=== PATIENT | female | born 1955 | race Caucasian/White ===

== ENCOUNTER 2024-11-05 15:34 | Emergency (ER) | payer MEDICARE, SELFPAY ==
[2024-11-05 15:34] VITALS: BP 175/92; PULSE 66; RESP 16; TEMP 35.3; O2SAT 93; BMI 31.5
--- NOTE | 2024-11-05 15:37 | RAD_ITS ---
PROCEDURE: SHOULDER MIN 2 VIEWS 11/05/2024 REASON FOR EXAM: FALL Initial encounter TECHNIQUE: SHOULDER MIN 2 VIEWS COMPARISON: None. FINDINGS: Bones: Humeral head and neck fracture, possibly impaction fracture of the right humeral neck into the humeral head. Joints: No dislocation. Soft tissues: No foreign body in the soft tissues. Other: RAD/Shoulder min 2 Views IMPRESSION: Right humeral neck impaction fracture into the right humeral head. Reading Location: [facility]
--- NOTE | 2024-11-05 16:30 | EX.ED.UPPERE ---
HPI History of Present Illness Chief Complaint: Upper Extremity Injury Detail of Chief Complaint: Injury right shoulder due to mechanical fall Informant: patient Occured/Mechanism Mechanism/Context: Yes injury, Yes blunt trauma and Yes fall Onset/Context/Timing Onset: Hours Context: Sudden Onset Timing: Continuous Quality of Pain: Dull, Aching and Throbbing Location: Proximal right humerus/shoulder region Current Severity: Moderate Maximum Severity: Severe Worsened by: Any movement Relieved by: Nothing Associated Symptoms Associated Symptoms: Positive for Loss of Funtion; Negative for Parasthesia or Weakness Narrative Narrative: Patient is a 69-year-old [id number] woman who presents after mechanical fall. She landed on her right shoulder. She is right-hand dominant. She denies paresthesia, anesthesia or motor weakness. She is not on an antithrombotic or anticoagulant. She denies hitting her head. Denies neck pain. She denies chest pain or shortness of breath. She denies abdominal pain. She states she has an abrasion on her left knee. She does not believe she injured it since the able to move and has no pain. Prior similar symptoms: No Recent Illness/Hospitalization: No PFSH PFS Home Medications ?Medication ?Instructions ?Recorded ?Last Taken ?Type paroxetine HCl 20 mg tablet 40 mg PO DAILY 07/27/13 10/08/16 History trazodone 50 mg tablet 50 mg PO QHS 07/27/13 10/08/16 History atorvastatin 40 mg tablet 40 mg PO QHS 10/09/16 10/08/16 History omeprazole 20 mg capsule,delayed 20 mg PO DAILY 10/09/16 10/09/16 History release prednisone 10 mg tablet 10 mg PO DAILY ##48 10/09/16 Unknown Rx Allergy/AdvReac Type Severity Reaction Status Date / Time codeine Allergy Rash Verified 11/05/24 15:36 morphine Allergy Rash Verified 11/05/24 15:36 Penicillins Allergy Rash Verified 11/05/24 15:36 Sulfa (Sulfonamide Allergy Rash Verified 11/05/24 15:36 Antibiotics) Social History (Updated 11/05/24 @ 16:[address] Jim Nguyễn MD) household members: none Smoking Status: Current every day smoker ROS ROS ED Constitutional Constitutional ED: Denies chills, fever(s) or subjective Eyes Eyes: Denies blurry vision or change in vision Cardiovascular Cardiovascular: Denies chest pain or palpitations Respiratory/Chest Respiratory/Chest: Denies dyspnea or dyspnea on exertion Gastrointestinal Gastrointestinal: Denies abdominal pain, nausea or vomiting Integumentary Reports Abrasions; Denies abscess or rash Neurologic Neurologic: Denies headache(s), paresthesias or weakness EXAM Physical Exam Const Vital Signs: 11/05/24 15:34 Temperature 95.6 F L Temperature Source Temporal Pulse Rate 66 Respiratory Rate 16 Blood Pressure 175/92 H Blood Pressure Mean 119 Pulse Ox 93 Oxygen Delivery Method Room Air Positive well nourished and well developed Constitutional Narrative: BMI is 31.5 General Appearance ED: well developed; Negative for cyanotic, diaphoretic or NAD HEENT Reports moist mucous membranes normocephalic and atraumatic Eyes PERRL and EOMs intact bilaterally Chest Wall palpation of chest normal Resp normal respiratory effort Cardio regular rate and regular rhythm GI non-tender and non-distended Extremity normal to inspection; Negative for full ROM Extremity Narrative: Axillary, median, radial and ulnar nerve function intact. Neuro oriented x3, CN's II-XII intact bilaterally and moves all extremities Sensorium / Orientation: alert Psych mental status grossly normal Skin General Skin Exam: Negative for petechiae Lesions: no lesions Rashes: no rashes Trauma: abrasion MDM MDM MDM Narrative Medical decision making narrative: X-ray of the shoulder was obtained. This was obtained to evaluate for fracture versus fracture dislocation versus contusion. Patient has significant allergy to codeine and morphine. She has never had Dilaudid. She asked if she could have ibuprofen. This was ordered. Radiography Chest X-Ray - ED: Read by ED Physician (4 views of the right shoulder was obtained and reveals a nondisplaced fracture at the surgical neck of the humerus. There is no abnormality of the clavicle or acromioclavicular joint.) Diagnostic Testing: Clinical Impression(s) from Imaging Studies Shoulder X-Ray 11/05/24 15:37 IMPRESSION: Right humeral neck impaction fracture into the right humeral head. [facility] Treatment and Re-Evaluation Narrative: Patient was informed of the x-ray results. She is placed in a sling and swath and discharged to home with follow-up with Dr. Hermann Sanchez. Discharge Plan Triage Chief Complaint: Upper Extremity Injury ED Provider: Jim Nguyễn Dx/Rx/DC Orders Clinical Impression: Closed fracture of proximal end of right humerus, Abrasion, left knee, initial encounter, Injury due to fall, History of gastroesophageal reflux (GERD) Instructions: ED Fracture, Shoulder Prescriptions: No Action trazodone 50 MG tablet 50 mg PO QHS paroxetine HCl 20 MG tablet 40 mg PO DAILY atorvastatin 40 MG tablet 40 mg PO QHS omeprazole 20 MG capsule 20 mg PO DAILY prednisone 10 MG tablet 10 mg PO DAILY Qty: 48 0RF Rx Instructions: 6 po qd x 3 days, 4 po qd x 3 days, 2 po qd x 3 days, 1 po qd x 3 days Primary Care Provider: Erma Garibay NP Referrals: Christiano Sanchez DO [Med Staff - Active Staff] - 5-7 Days Erma Garibay NP, INSURANCE CHECKER-C [Primary Care Provider] - Activity Restrictions/Additional Instructions: 1. Apply ice to your right shoulder 6-8 times a day. 2. After a day or 2 remove your arm from the shoulder and do rotational type movement. 3. Because of your allergies recommend Tylenol for pain. 4. Contact Dr. Christiano Sanchez for follow-up in 5 to 7 days. Print Language: Moroccan Disposition Disposition: Home, Self Care
[2024-11-05] MEDS: Ibuprofen 600 MG Tablet PO (16:37)
[2024-11-05] MEDS: Acetaminophen 325 MG Tablet 650 MG PO (16:37)
[2024-11-05 16:45] VITALS: BP 150/102; PULSE 81; RESP 16; TEMP 36.9; O2SAT 95
== END 2024-11-05 16:49 | disposition home or self-care (01) ==
LOC: ED 16:44
PROVIDERS: Emergency Provider Emergency Medicine; PCP Internal Medicine; Visit Provider Emergency Medicine
DX: S42.291A Other displaced fracture of upper end of right humerus, initial encounter for closed fracture (principal); F17.200 Nicotine dependence, unspecified, uncomplicated; S80.212A Abrasion, left knee, initial encounter; W19.XXXA Unspecified fall, initial encounter; K21.9 Gastro-esophageal reflux disease without esophagitis
CPT/HCPCS: 73030; 99284

== ENCOUNTER 2025-01-07 11:52 | Outpatient (RCR) | payer MEDICARE, SELFPAY ==
--- NOTE | 2025-01-07 13:09 | HP.PTEVAL ---
Patient's Visit Information Visit Information Visit Information: CAM CUEVAS is a 69 year old F referred to Physical Therapy by CALISTA Joshi with a diagnosis of CLOSED FRACTURE OF PROXIMAL END OF R HUMERUS 11/04/24. Date of Evaluation: 01/07/25 Physical Therapist: Deborah Gabriel PT, Cert MDT Visit Plan Frequency: 2x /Week Duration: 6-8 WKS Plan: POSTURE CORRECTION, STRETCHING AND STRENGTHEING. CAROLANN UE ROM, STRETCHING AND STENGTHENING WITH FOCUS ON R SHLD MANUAL THERAPY FOR JOINT MOBILIZATION FOR PAIN CONTROL AND TO INCREASE ROM. R SHLD A/AA/PROM MANUALLY AND WITH HEP INSTRUCTION AND THER EX. ALSO FOCUS ON SCAPULAR STRENGTH AND STABILITY. MODALITIES NEEDED FOR PAIN AND EDEMA CONTROL. Subjective Subjective: Work/Leisure: RETIRED. LIVES ALONE. Present symptoms: PATIENT C/O R NECK, SHLD, UPPER ARM AND SOMETIMES FOREARM PAIN. PATIENT DENIES R UE NUMBNESS AND TINGLING. Present since: 11/04/24 Getting Better, Getting Worse or Staying the Same: PATIENT REPORTS SHE IS STAYING THE SAME AT THIS POINT. Pain Scale: Worst - 7/10 Least - 0/10 Currently: 0/10 AT REST, 5/10 REACHING Commenced as a result of: SLIPPED AND FELL IN HER KITCHEN Symptoms at onset: SEVERE R SHLD PAIN AND COULDN'T MOVE HER ARM Worse: TRYING TO RAISE ARM UP, OUT AND BACK. TRYING TO WIPE AFTER TOLIETING, TRYING TO DO HAIR, TRYING TO WASH BODY IN THE SHOWER, TRYING TO DO LAUNDRY. CARRYING ANYTHING WITH R UE. TRYING TO USE R ARM TO DO ANYTHING. CAN'T OPEN JARS, BOTTLES, ETC. Better: ADVIL, TYLONOL, REST Disturbed sleep: YES - WAKES HER UP IF ROLLS OVER. CAN NOT SLEEP ON R SIDE. Previous history/Previous treatment: NO PRIOR HISTORY OF R UE PROBLEMS. H/O STIFF NECK. H/O SCOLIOSIS. DENIES ANY PRIOR NECK OR SHLD TREATMENTS. This episode: WRAP AND SLING ON R UE X 4 WKS. STARTED PENDULUM EX'S AT 4 WKS AFTER INJURY. TRYING TO USE ARM TOLERATED. Dizziness: NO Tinnitus: YES Nausea: NO Shortness of Breath: YES - COPD Difficulty Swallowing: NO Gait: ONE FALL BEFORE BROKE ARM DUE TO LOSING BALANCE IN [employer]ROOM [employer] - STATES JUST GOT BRUISES THAT TIME. DOES NOT USE ANY AD'S. STATES SISTER BROUGHT HER A CANE BUT DOES NOT USE IT. Accidents: NO OTHER ACCIDENTS. Unexplained weight loss: NO Imaging: X-RAYS EVERY 2 WKS OF R SHLD WITH GOOD HEALING PER PATIENT REPORT. PMH/Recent major surgery: Borderline osteopenia Vitamin D deficiency GERD (gastroesophageal reflux disease) Depression COPD. HIGH CHOLESTEROL. Objective Objective: Sitting Posture/Standing Posture: POOR. EXTREME FH AND RSHL'S. INCREASED KYPHOSIS AND SCOLIOSIS. Active Correction of posture: ABLE TO MINIMALLY CORRECT BUT NOT MAINTAIN. Other Observations: INDEP GAIT INTO PT WITHOUT AD WITH DECREASED CADANCE, INCREASED TRUNK FLEXION AND DECREASED CAROLANN STRIDE LENGTH. NO LOB. UE DEPENDENT TO TRANSFER SIT TO STAND. Sensory deficit: CAROLANN UE LIGHT TOUCH SENSATION GROSSLY INTACT AND SYMMETRICAL. ROM deficit: SEATED L SHLD FLEX 110, ABD 85 DEG, SUPINE ER 45 DEG, IR 75 DEG WITH 60 DEG PASSIVE ABD. SEATED R SHLD FLEXION 54 DEG, ABD 48 DEG, SUPINE ER 30 DEG, IR 30 DEG WITH 55 DEG PASSIVE ABD. CAROLANN ELBOW, FOREARM, WRIST AND HAND AROM WFL. 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 Cervical Mvmt Loss: Flex: NIL Pro: NIL Ext: LESLY Ret: LESLY RSB: MOD LSB: MOD R Rot: MOD TO LESLY L Rot: MOD PATIENT C/O PINCHING IN THE MIDDLE OF HER NECK AND ALONG THE R SIDE OF HER SKULL WITH CERVICAL ROM TESTING TODAY BUT NW A RESULT. Postural strength: POOR Palpation: TENDERNERSS WITH PALPATION OF CERVICAL SPINE, CAROLANN UPPER TRAPS R>L, CAROLANN OCCIPUT REGIONS L>R AND R SHLD REGION ESPECIALLY POSTERIOR DELTOID REGION. MILD TENDERNESS INTO R UPPER ARM. Balance/Special Test Scores Quick DASH Score: [phone] Goals Goal 1:: DECREASE C/O R UE PAIN BY AT LEAST 50% TO EASE ADL'S Goal Time Frame: 4-6 Weeks Goal 2:: INCREASE FUNCTIONAL ROM OF R UE TO EASE ADL'S. Goal Time Frame: 6-8 Weeks Goal 3:: IMPROVE FUNCTIONAL STRENGTH OF R UE TO ALLOW PATIENT TO RETURN TO PLOF Goal Time Frame: 6-8 Weeks Goal 4:: PATIENT WILL SCORE AT LEAST 10 POINTS BETTER ON QUICK DASH QUESTIONNAIRE Goal Time Frame: 4-6 Weeks Goal 5:: PATIENT WILL BE INDEP WITH HEP FOR CONTINUED IMPROVEMENT ONCE FORMAL PHYSICAL THERAPY CONCLUDES. Goal Time Frame: 6-8 Weeks Rehabilitation Potential Physical Therapy Diagnosis: POSTURAL AND CAROLANN UE STIFFNESS AND WEAKNESS ESPECIALLY R UE S/P FALL AND R HUMERAUS FX 11/04/24 Rehabilitation Potential: Good Anticipated Interventions Patient/Client Instruction: Educate patient on: Condition, Plan of Care and Risk Factors For the Purpose of:: To improve self management Therapeutic Exercise to Include: Strength training, Body mechanics, Postural training, Flexibilty training, Neuromotor development, Passive ROM, Active ROM and Scapular Strength/Stabilization For the Purpose of:: To decrease pain, To increase ROM, To improve nutrient delivery to tissue, To improve muscle performance and motor function, To improve ability to perform ADL's, To increase tolerance to activity/condition/position, To improve ability of physical actions for home/community/work/leisure, To decrease soft tissue restriction, To increase flexibility/ROM and To improve self management Cryotherapy (ice pack, ice massage): Yes Thermo therapy (hot pack): Yes Ultrasound (thermal/non thermal): Yes For the Purpose of:: To decrease pain, To decrease swelling/inflammation and To improve nutrient delivery to tissue Text: Thank you for the opportunity to evaluate your patient. For Medicare and Medicare HMO plans, please review the plan of care and approve it. It will need to be FAXED BACK to us at [phone] for Medicare purposes. For Medicare only, by signing this I certify the plan of care. Please let me know if there are questions or concerns regarding this plan of care. Physician Signature: Date:
== END 2025-01-07 19:00 | disposition home or self-care (01) ==
LOC: PT 11:52
PROVIDERS: PCP Internal Medicine; Referring Provider Nurse Practitioner Family; Visit Provider Nurse Practitioner Family
DX: S42.291D Other displaced fracture of upper end of right humerus, subsequent encounter for fracture with routine healing (principal)
CPT/HCPCS: 97162